=== PATIENT | female | born 1990 | race Caucasian/White ===

== ENCOUNTER 2016-10-18 10:24 | Emergency (ER) | payer MEDICARE, OTHER ==
[2016-10-18 11:39] LABS: BILIRUBIN NEGATIVE (NEGATIVE); BLOOD NEGATIVE Ery/uL (NEGATIVE); CLARITY CLEAR (CLEAR); COLOR YELLOW (YELLOW); GLUCOSE (U) NORMAL (NORMAL); KETONE (U) NEGATIVE (NEGATIVE); LEUKOCYTES NEGATIVE Leu/uL (NEGATIVE); NITRITE NEGATIVE (NEGATIVE); PROTEIN TRACE (LOW) mg/dL (NEGATIVE); SPECIFIC GRAVITY >=1.030 (1.001-1.030); UROBILINOGEN 0.2 mg/dL (0.2-1.0)
[2016-10-18 11:54] LABS: AMPHETAMINES NEGATIVE (NEGATIVE); BARBITURATES NEGATIVE (NEGATIVE); BENZODIAZEPINES NEGATIVE (NEGATIVE); COCAINE NEGATIVE (NEGATIVE); MARIJUANA (THC) NEGATIVE (NEGATIVE); METHADONE NEGATIVE (NEGATIVE); TRICYCLIC ANTIDEPRESSANT NEGATIVE (NEGATIVE)
[2016-10-18 11:58] LABS: BACTERIA TRACE; CALCIUM OXALATE CRYSTALS MODERATE; MUCOUS MODERATE
[2016-10-18 12:15] LABS: BASOPHIL 0.3 % (0-2); EOSINOPHIL 1.5 % (0-5); HCT 47.2 % (37.0-47.0); HGB 15.9 g/dl (12.5-16.0); LYMPHOCYTE 10.2 % (15-48); MCH 33.2 pg (25.0-31.0); MCHC 33.7 g/dL (32.0-36.0); MCV 98.5 fL (78.0-100.0); MONOCYTE 6.5 % (0-12); MPV 10.7 fL (6.0-9.5); NEUTROPHIL 81.5 % (41-80); PLT 240 K/uL (150-400); RBC 4.79 M/uL (4.20-5.40); WBC 11.3 K/uL (4.0-10.5)
[2016-10-18 12:34] LABS: ALBUMIN 4.4 g/dL (3.5-5.0); BILIRUBIN - TOTAL 0.4 mg/dL (0.1-1.0); CREATININE 0.7 mg/dL (0.5-1.0); GLOBULIN (CALCULATION) 3.1 g/dL (2.2-4.2); POTASSIUM 4.6 mmol/L (3.5-5.1); TOTAL PROTEIN 7.5 g/dL (6.4-8.3)
== END 2016-10-18 14:55 | disposition home or self-care (01) ==
LOC: FER 10:24
PROVIDERS: Nurse Practitioner
DX: R19.7 Diarrhea, unspecified (principal); R11.2 Nausea with vomiting, unspecified; R10.9 Unspecified abdominal pain; Z87.19 Personal history of other diseases of the digestive system; Z88.0 Allergy status to penicillin; Z88.6 Allergy status to analgesic agent; Z88.8 Allergy status to other drugs, medicaments and biological substances
CPT/HCPCS: 36415; 80053; 80305; 81001; 85025